=== PATIENT | female | born 1955 | race Caucasian/White ===

== ENCOUNTER 2019-08-23 14:06 | Emergency (ER) | payer MEDICARE ==
[~2019-08-23] VITALS: Ht 157.5 cm; Wt 54.4 kg
[~2019-08-23 14:06] MED LIST: CEL20 PO; LIP10 PO; LISI10TA5 PO; METO25TA3 PO; PHEN100C4 PO; TACR0.5C PO; TACR1CAP PO; URSO300C24 PO
--- NOTE | 2019-08-23 14:06 | NUR ---
Patient to ER bed 1 to gown for evaluation. Side rails up. Report given to Sara CASE.
[2019-08-23 14:10] VITALS: BP_SYST 146
--- NOTE | 2019-08-23 14:14 | NUR ---
Seizure precautions in place. Seizure pads applied to gurney. Side rails up.
--- NOTE | 2019-08-23 14:20 | NUR ---
pt arrived via [facility]. Pt had a tonic clonic seizure that lasted for 1 min. PT is AAOx 3. Pt's reponse to questions are slightly delayed. VVS. Seizure precautions remain in place.
--- NOTE | 2019-08-23 14:32 | NUR ---
# 22 gauge angiocath placed to LFA. Use of asceptic technique. Opsite placed over site. Blood return noted. Blood for lab drawn from site. Flushed with 10 cc of normal saline. No evidence of infiltration noted. Patient tolerated well.
[2019-08-23 15:04] LABS: BASOPHILS % (AUTO) 1.1 % (0.0-2.0); EOSINOPHILS # (AUTO) 0.1 K/uL (0.0-0.4); EOSINOPHILS % (AUTO) 3.1 % (0.0-4.0); HEMATOCRIT 37.4 % (36-48); HEMOGLOBIN 12.9 g/dL (12.0-16.0); LYMPHOCYTES # (AUTO) 0.5 K/uL (1.0-5.5); LYMPHOCYTES % (AUTO) 13.8 % (20.5-51.5); MEAN CORPUSCULAR HEMOGLOBIN 32 pg (27-31); MEAN CORPUSCULAR HGB CONC 34 % (32-36); MEAN CORPUSCULAR VOLUME 91 fL (79.0-98.0); MONOCYTES # (AUTO) 0.3 K/uL (0.0-1.0); MONOCYTES % (AUTO) 8.5 % (1.7-9.3); NEUTROPHILS # (AUTO) 2.7 K/uL (1.8-7.7); NEUTROPHILS % (AUTO) 73.5 % (40.0-70.0); RED CELL DISTRIBUTION WIDTH 15.7 % (9.0-15.0); WHITE BLOOD COUNT (AUTO) 3.7 K/uL (4.8-10.8)
[2019-08-23 15:16] LABS: CALCIUM 10.5 mg/dL (8.4-11.0); CREATININE 1.26 mg/dL (0.55-1.30); POTASSIUM 4.7 mmol/L (3.5-5.1)
[2019-08-23 15:30] LABS: ALBUMIN 3.6 g/dL (3.4-4.8); TOTAL BILIRUBIN 0.6 mg/dL (0.0-1.0)
--- NOTE | 2019-08-23 15:30 | NUR ---
No seizure activity noted.
[2019-08-23] MEDS ORDERED: NACL 0.9% 1,000 ML IV ONE (15:45)
[2019-08-23 15:46] LABS: BILIRUBIN,URINE NEGATIVE (NEGATIVE); BLOOD, URINE NEGATIVE (NEGATIVE); CLARITY/URINE CLEAR (CLEAR); COLOR,URINE YELLOW (YELLOW); GLUCOSE,URINE NEGATIVE (NEGATIVE); KETONES,URINE NEGATIVE (NEGATIVE); LEUKOCYTE ESTERASE ,URINE TRACE (NEGATIVE); NITRITE, URINE NEGATIVE (NEGATIVE); PH,URINE 5.5 (5.0-8.0); PROTEIN URINE NEGATIVE (NEGATIVE)
[2019-08-23 15:56] LABS: BACTERIA,URINE FEW /HPF (None Seen); RBC,URINE 0-3 /HPF (0-3)
[2019-08-23 15:56] LABS: INR 1.3 (0.8-1.2); PROTHROMBIN TIME 12.9 SECS (9.5-12.5)
[2019-08-23 15:57] LABS: HYALINE CASTS, URINE 0-10 /LPF (None Seen)
[2019-08-23 15:58] LABS: PHENYTOIN (DILANTIN) 7.8 ug/mL (10.0-20.0)
[2019-08-23 16:05] LABS: BARBITURATE, URINE POSITIVE (NEG <=200); CANNABINOID, URINE POSITIVE (NEG <=50)
[2019-08-23 16:06] LABS: BENZODIAZEPINE, URINE NEGATIVE (NEG <=150); COCAINE, URINE NEGATIVE (NEG <=150); METHAMPHETAMINES SCREEN,URINE NEGATIVE (NEG <=500); OPIATE, URINE NEGATIVE (NEG <=100); PHENCYCLIDINE SCREEN,URINE NEGATIVE (NEG <=25); UR TRICYCLIC ANTIDEPRESSANTS NEGATIVE (NEG <=300); URINE AMPHETAMINE NEGATIVE (NEG <=500); URINE METHADONE NEGATIVE (NEG <=200); URINE OXYCODONE SCREEN NEGATIVE (NEG <=100); URINE PROPOXYPHENE SCREEN NEGATIVE (NEG <=300)
--- NOTE | 2019-08-23 16:20 | NUR ---
NS 1L bolus currently running
[2019-08-23] MEDS ORDERED: MORPHINE 4 MG/ML INJ. SYRINGE IVP ONE (16:30)
--- NOTE | 2019-08-23 16:36 | NUR ---
Dr. Burgos, [facility] Doc, paged back to speak to Dr. Nova regarding pt status.
--- NOTE | 2019-08-23 16:48 | NUR ---
medicated the pt with Morphine 4mg IVP per MD order.
--- NOTE | 2019-08-23 16:50 | NUR ---
Patient transported to radiology via WC, accompanied by staff.
[2019-08-23] MEDS ORDERED: PHENYTOIN 100 MG CAPSULE PO ONE (17:00)
--- NOTE | 2019-08-23 17:14 | NUR ---
pt returned from radiology
--- NOTE | 2019-08-23 17:24 | NUR ---
Called pt's and notified him the pt is being discharged.
[2019-08-23 17:50] VITALS: BP_SYST 125
--- NOTE | 2019-08-23 17:51 | NUR ---
Patient given written and verbal discharge instructions and verbalizes understanding. ER MD discussed with patient the results and treatment provided. Patient in stable condition. ID arm band removed. IV catheter removed intact and dressing applied, no active bleeding.Patient educated on pain management and to follow up with PMD. Pain Scale 2/10 left arm.Opportunity for questions provided and answered. Medication side effect fact sheet provided.
[2019-08-25 17:06] LABS: PLATELET COUNT (AUTO) 29 K/uL (130-430)
== END 2019-08-23 17:51 | disposition home or self-care (01) ==
LOC: SED 14:06
DX: R56.9 Unspecified convulsions (principal); D69.6 Thrombocytopenia, unspecified; K74.60 Unspecified cirrhosis of liver; M79.601 Pain in right arm; I10 Essential (primary) hypertension; Z88.0 Allergy status to penicillin; Z79.899 Other long term (current) drug therapy
CPT/HCPCS: 36415; 71045; 73030; 73080; 73110; 80053; 80185; 80307; 81000; 84484; 85025; 85610; 85730; 87086; 93005; 96374; 99284; J2270; J7030

== ENCOUNTER 2021-08-22 13:45 | Emergency (ER) | payer MEDICARE, SELFPAY ==
[~2021-08-22] VITALS: Ht 162.6 cm; Wt 53.5 kg
[~2021-08-22 13:45] MED LIST changes: +ASPI-1155 PO; +CALC-884 PO; -CEL20 PO; +ESCI5TAB PO; +LACT10SO6 PO; +LIDOINT TP; -LISI10TA5 PO; -METO25TA3 PO; +NADO20TA9 PO; +OLAN10TA71 PO; +SPIR50TA PO; -TACR0.5C PO; -TACR1CAP PO; +TACR1CAP2 PO
[2021-08-22 13:50] VITALS: BP_SYST 126
[2021-08-22] MEDS ORDERED: HALOPERIDOL LACTATE 5 MG/ML VIAL IVP ONE (14:30)
[2021-08-22 14:45] LABS: ANION GAP 14 (5-15); CALCIUM 10.2 mg/dL (8.4-11.0); CHLORIDE 108 mmol/L (98-107); CREATININE 1.81 mg/dL (0.55-1.30); GLUCOSE 147 mg/dL (70-99); POTASSIUM 4.1 mmol/L (3.5-5.1); SODIUM SERUM 142 mmol/L (136-145); UREA NITROGEN, BLOOD 49 mg/dL (8-21)
[2021-08-22 14:48] LABS: GFR AFRICAN AMERICAN 36 mL/min (>90)
[2021-08-22 14:51] LABS: BASOPHILS % (AUTO) 0.5 % (0.0-2.0); EOSINOPHILS % (AUTO) 0.2 % (0.0-4.0); HEMOGLOBIN 11.8 g/dL (12.0-16.0); LYMPHOCYTES # (AUTO) 0.6 K/uL (1.0-5.5); LYMPHOCYTES % (AUTO) 7.7 % (20.5-51.5); MEAN CORPUSCULAR HEMOGLOBIN 34 pg (27-31); MEAN CORPUSCULAR HGB CONC 36 % (32-36); MEAN CORPUSCULAR VOLUME 95 fL (79.0-98.0); MONOCYTES # (AUTO) 0.6 K/uL (0.0-1.0); MONOCYTES % (AUTO) 7.6 % (1.7-9.3); NEUTROPHILS # (AUTO) 6.4 K/uL (1.8-7.7); RED BLOOD CELL COUNT(AUTO) 3.49 MIL/uL (4.2-6.2); RED CELL DISTRIBUTION WIDTH 14.7 % (9.0-15.0); WHITE BLOOD COUNT (AUTO) 7.6 K/uL (4.8-10.8)
[2021-08-22 14:54] LABS: PHENYTOIN (DILANTIN) 16.5 ug/mL (10.0-20.0)
[2021-08-22 14:54] LABS: PLATELET COUNT (AUTO) 37 K/uL (130-430)
[2021-08-22 14:58] LABS: ACETONE, SERUM NEGATIVE (NEGATIVE)
[2021-08-22 15:01] LABS: ALANINE AMINOTRANSFERASE 34 U/L (12-78); ALBUMIN 3.8 g/dL (3.4-4.8); ASPARTATE AMINOTRANSFERASE 52 U/L (10-37); TOTAL BILIRUBIN 1.2 mg/dL (0.0-1.0)
[2021-08-22 15:03] LABS: ACETAMINOPHEN < 1 ug/mL (1-30); ALCOHOL, BLOOD < 3 mg/dL (<10)
[2021-08-22] MEDS ORDERED: NACL 0.9% 1,000 ML IV ONE (15:45)
[2021-08-22 18:39] LABS: BILIRUBIN,URINE NEGATIVE (NEGATIVE); BLOOD, URINE 2+ (NEGATIVE); COLOR,URINE YELLOW (YELLOW); GLUCOSE,URINE NEGATIVE (NEGATIVE); KETONES,URINE NEGATIVE (NEGATIVE); LEUKOCYTE ESTERASE ,URINE 2+ (NEGATIVE); NITRITE, URINE NEGATIVE (NEGATIVE); PH,URINE 5.5 (5.0-8.0); PROTEIN URINE NEGATIVE (NEGATIVE); UROBILINOGEN,URINE 0.2 (0.2-1.0)
[2021-08-22 18:55] LABS: CLARITY/URINE HAZY (CLEAR)
[2021-08-22 19:02] LABS: INR 1.5 (0.8-1.2); PROTHROMBIN TIME 15.2 SECS (9.5-12.5)
[2021-08-22 19:13] LABS: BACTERIA,URINE FEW /HPF (None Seen); FINE GRANULAR CASTS,URINE 0-10 /LPF (None Seen); MUCUS,URINE None Seen /LPF (None Seen); URINE AMORPHOUS URATE 2+ /HPF (None Seen)
[2021-08-22 19:18] LABS: BARBITURATE, URINE POSITIVE (NEG <=200); BENZODIAZEPINE, URINE POSITIVE (NEG <=150); CANNABINOID, URINE NEGATIVE (NEG <=50); COCAINE, URINE NEGATIVE (NEG <=150); METHAMPHETAMINES SCREEN,URINE NEGATIVE (NEG <=500); OPIATE, URINE NEGATIVE (NEG <=100); PHENCYCLIDINE SCREEN,URINE NEGATIVE (NEG <=25); UR TRICYCLIC ANTIDEPRESSANTS NEGATIVE (NEG <=300); URINE AMPHETAMINE NEGATIVE (NEG <=500); URINE METHADONE NEGATIVE (NEG <=200); URINE OXYCODONE SCREEN NEGATIVE (NEG <=100); URINE PROPOXYPHENE SCREEN NEGATIVE (NEG <=300)
[2021-08-23 00:58] VITALS: BP_SYST 149
== END 2021-08-23 00:58 | disposition short-term general hospital (02) ==
LOC: SED 13:45
DX: R41.82 Altered mental status, unspecified (principal); R46.89 Other symptoms and signs involving appearance and behavior; I10 Essential (primary) hypertension; Z88.0 Allergy status to penicillin; Z79.899 Other long term (current) drug therapy; Z79.82 Long term (current) use of aspirin; Z20.822 Contact with and (suspected) exposure to COVID-19
CPT/HCPCS: 36415; 70450; 71045; 76376; 80053; 80185; 80307; 81000; 82009; 82140; 84484; 85025; 85610; 85730; 87086; 87426; 93005; 96361; 96374; 99285; G0480; G0481; G0482; J1630; J7030